=== PATIENT | male | born 1975 | race African-American/Black ===

== ENCOUNTER 2020-07-05 14:18 | Emergency (ER) | payer SELFPAY ==
[2020-07-05] MEDS ORDERED: Boostrix 0.5 ML (Tdap) VIAL ONE (14:37)
[2020-07-05] MEDS ORDERED: traMADol HCl 50 MG TAB ONE (15:02)
[2020-07-05] MEDS ORDERED: Ibuprofen 800 MG TAB ONE (15:03)
== END 2020-07-05 15:09 | disposition home or self-care (01) ==
LOC: BURERS 14:18
DX: S01.01XA Laceration without foreign body of scalp, initial encounter (principal); Z23 Encounter for immunization; W22.8XXA Striking against or struck by other objects, initial encounter
CPT/HCPCS: 12001; 70450; 90471; 90715